=== PATIENT | male | born 1995 | race Caucasian/White ===

== ENCOUNTER 2024-04-21 01:38 | Emergency (ER) | payer SELFPAY | END 2024-04-21 02:00 | LOC: MW.ED 01:38 | DX: S00.31XA Abrasion of nose, initial encounter (principal); F17.210 Nicotine dependence, cigarettes, uncomplicated; Z88.0 Allergy status to penicillin; W19.XXXA Unspecified fall, initial encounter | CPT/HCPCS: 99283 ==